=== PATIENT | male | born 1965 | race Caucasian/White ===

== ENCOUNTER 2020-03-01 12:14 | Inpatient (IN) | payer MEDICARE, MEDICAID ==
[2020-03-01] VITALS (13 sets, daily range): BP systolic 96–183; BP diastolic 65–98
[~2020-03-01] VITALS: Ht 162.6 cm; Wt 92.6 kg
[~2020-03-01 12:14] MED LIST: ASPI-1158 PO; CINA90TA PO; FAMO20TA8 PO; FOS1G PO; LEVO500T2 PO; LIP40 PO; METO-385 PO; RENAVITE PO
[2020-03-01] MEDS ORDERED: SODIUM CHLORIDE 0.9% 1,000 ML IV ONE (12:30)
[2020-03-01] MEDS ORDERED: VECURONIUM BROMIDE 10 MG/VIAL IV ONE ×2 (12:46→13:00)
[2020-03-01] MEDS ORDERED: SUCCINYLCHOLINE CHLORIDE 200MG/10ML IV ONE (12:46)
[2020-03-01] MEDS ORDERED: ETOMIDATE 2MG/ML 10ML VIAL IV ONE ×2 (12:46→13:00)
[2020-03-01] MEDS ORDERED: PROPOFOL 10MG/ML 100ML 100 ML IV ONE ×2 (13:00→16:39)
[2020-03-01] MEDS: SODIUM CHLORIDE 0.9% 1,000 ML IV SCH ×2 (13:08→20:55)
[2020-03-01 13:12] LABS: BG BASE EXCESS -1.1 mmol/L (-2.0-2.0); BG CARBOXYHEMOGLOBIN 0.7 % (0.5-1.5); BG DEOXYHEMOGLOBIN 4.6 % (0.0-5.0); BG HCO3 ACT 24.6 mmol/L (22.0-26.0); BG METHEMOGLOBIN 0.3 % (0.0-1.5); BG OXYGEN SATURATION 95.4 % (92.0-98.5); BG OXYHEMOGLOBIN 94.4 % (94.0-97.0); BG PCO2 44.7 mmHg (35.0-45.0); BG PH 7.358 (7.350-7.450); BG PO2 83.8 mmHg (75.0-100.0); BG SAMPLE SITE LEFT BRACHIAL; BG TIDAL VOLUME(mL) 500 mL; BG TOTAL HEMOGLOBIN 15.1 g/dL (12.0-18.0); BG VENT MODE VENT - A/C; BG VENT RATE 18 set
[2020-03-01] MEDS ORDERED: ONDANSETRON HCL 4MG/2ML INJ IV PRN (13:15)
[2020-03-01] MEDS ORDERED: ENOXAPARIN 40MG/0.4ML SYR SUBCUT SCH (13:15)
[2020-03-01] MEDS ORDERED: IPRATROPIUM/ALBUTEROL 0.5-3(2.5)MG/3ML NEB NEB PRN (13:15)
[2020-03-01] MEDS ORDERED: PIPERACILLIN/TAZ 3.375G PREMIX 50 ML IV SCH (13:15)
[2020-03-01] MEDS ORDERED: PIPERACILLIN/TAZ 3.375G PREMIX 50 ML IV ONE (13:30)
[2020-03-01] MEDS ORDERED: FENTANYL CITRATE/PF 500 MCG in SODIUM CHLORIDE 0.9% 40 ML IV PRN ×4 (14:45)
[2020-03-01 15:35] LABS: CHLORIDE 103 mEq/L (98-107)
[2020-03-01 15:38] LABS: D-DIMER 2.09 mg/L FEU (<0.50); HEMATOCRIT. 40.2 % (42.0-52.0); HEMOGLOBIN. 13.5 g/dL (14.0-18.0); INR 1.2; MEAN CORPUSCULAR HEMOGLOBIN 27.8 pg (28.0-32.0); MEAN CORPUSCULAR VOLUME 82.5 fL (80.0-94.0); MEAN PLATELET VOLUME 7.3 fl (7.4-10.4); PLATELET 320 x1000/uL (130-400); PROTHROMBIN TIME 12.8 sec (9.6-11.0); RED BLOOD CELL COUNT 4.87 mill/uL (4.7-6.1); RED CELL DISTRIBUTION WIDTH 14.1 % (11.6-14.6)
[2020-03-01 15:39] LABS: ETHANOL BLOOD < 10 mg/dL
[2020-03-01 15:41] LABS: CLARITY URINE CLEAR (CLEAR); COLOR URINE DARK YELLOW (YELLOW); KETONES URINE TRACE (NEGATIVE); LEUKOCYTE ESTERASE URINE NEGATIVE (NEGATIVE); NITRITE URINE NEGATIVE (NEGATIVE); OCCULT BLOOD URINE 2+ (NEGATIVE); PROTEIN URINE 2+ (NEGATIVE); SPECIFIC GRAVITY URINE 1.025 (1.005-1.030)
[2020-03-01 15:45] LABS: CREATINE KINASE 48 IU/L (39-308)
[2020-03-01 15:49] LABS: CREATINE KINASE MB FRACTION < 1.0 ng/mL (0.5-3.6)
[2020-03-01 15:51] LABS: *AMPHETAMINES SCREEN URINE NEGATIVE (NEGATIVE); *BARBITURATES SCREEN URINE NEGATIVE (NEGATIVE); *BENZODIAZEPINES SCREEN URINE NEGATIVE (NEGATIVE); *COCAINE SCREEN URINE NEGATIVE (NEGATIVE); CANNABINOID URINE SCREEN NEGATIVE (NEGATIVE); METHADONE URINE SCREEN NEGATIVE (NEGATIVE); OPIATES URINE SCREEN NEGATIVE (NEGATIVE); PHENCYCLIDINE URINE SCREEN NEGATIVE (NEGATIVE)
[2020-03-01 16:41] LABS: PLATELET ESTIMATE NORMAL
[2020-03-01] MEDS ORDERED: VANCOMYCIN 1500MG in DEXTROSE 5% WATER 250ML IV SCH (20:00)
[2020-03-01] MEDS: ENOXAPARIN 40MG/0.4ML SYR SUBCUT SCH (20:19)
[2020-03-01] MEDS: HYDROXYCHLOROQUINE SULFATE 200MG TABLET PO SCH (20:21)
[2020-03-01] MEDS: ASCORBIC ACID 500 MG TABLET PO SCH (20:21)
[2020-03-01] MEDS: PROPOFOL 10MG/ML 100ML 100 ML IV PRN (22:01)
[2020-03-01] MEDS: FENTANYL CITRATE/PF 1,000 MCG in SODIUM CHLORIDE 0.9% 80 ML IV PRN (22:09)
[2020-03-01 23:04] LABS: BG BASE EXCESS -0.4 mmol/L (-2.0-2.0); BG CARBOXYHEMOGLOBIN 0.3 % (0.5-1.5); BG DEOXYHEMOGLOBIN 8.2 % (0.0-5.0); BG FRACTION INSPIRED OXYGEN 100; BG HCO3 ACT 23.3 mmol/L (22.0-26.0); BG METHEMOGLOBIN 0.2 % (0.0-1.5); BG OXYGEN SATURATION 91.8 % (92.0-98.5); BG OXYHEMOGLOBIN 91.3 % (94.0-97.0); BG PCO2 35.2 mmHg (35.0-45.0); BG PH 7.438 (7.350-7.450); BG PO2 59.6 mmHg (75.0-100.0); BG SAMPLE SITE RIGHT RADIAL; BG TIDAL VOLUME(mL) 500 mL; BG VENT MODE VENT - A/C; BG VENT RATE 18 set
[2020-03-02] VITALS (80 sets, daily range): BP systolic 83–164; BP diastolic 51–102
[2020-03-02 00:05] LABS: CREATINE KINASE 39 IU/L (39-308); CREATINE KINASE MB FRACTION < 1.0 ng/mL (0.5-3.6)
[2020-03-02] MEDS: PROPOFOL 10MG/ML 100ML 100 ML IV PRN ×3 (02:13→12:52)
[2020-03-02] MEDS: CEFTRIAXONE 1 G PREMIX 50 ML IV SCH ×2 (02:48→23:26)
[2020-03-02 05:28] LABS: BASOPHILS % 0.1 % (0.0-2.0); EOSINOPHILS % 0.4 % (0.0-5.0); HEMATOCRIT. 36.6 % (42.0-52.0); HEMOGLOBIN. 12.2 g/dL (14.0-18.0); LYMPHOCYTES % 8.1 % (20.0-50.0); MEAN CORPUSCULAR HEMOGLOBIN 27.7 pg (28.0-32.0); MEAN CORPUSCULAR VOLUME 83.1 fL (80.0-94.0); MEAN PLATELET VOLUME 7.4 fl (7.4-10.4); MONOCYTES % 9.6 % (2.0-8.0); NEUTROPHILS % 81.8 % (40.0-76.0); PLATELET 277 x1000/uL (130-400); RED BLOOD CELL COUNT 4.41 mill/uL (4.7-6.1); RED CELL DISTRIBUTION WIDTH 14.1 % (11.6-14.6)
[2020-03-02 05:38] LABS: CHLORIDE 107 mEq/L (98-107)
[2020-03-02] MEDS: SODIUM CHLORIDE 0.9% 1,000 ML IV SCH (07:40)
[2020-03-02 08:06] LABS: BG BASE EXCESS -2.2 mmol/L (-2.0-2.0); BG CARBOXYHEMOGLOBIN 0.2 % (0.5-1.5); BG DEOXYHEMOGLOBIN 13.6 % (0.0-5.0); BG FRACTION INSPIRED OXYGEN 100; BG HCO3 ACT 21.8 mmol/L (22.0-26.0); BG METHEMOGLOBIN 0.1 % (0.0-1.5); BG OXYGEN SATURATION 86.4 % (92.0-98.5); BG OXYHEMOGLOBIN 86.1 % (94.0-97.0); BG PCO2 35.2 mmHg (35.0-45.0); BG PO2 50.5 mmHg (75.0-100.0); BG SAMPLE SITE RIGHT RADIAL; BG TIDAL VOLUME(mL) 500 mL; BG TOTAL HEMOGLOBIN 12.6 g/dL (12.0-18.0); BG VENT MODE VENT - A/C; BG VENT RATE 18 set
[2020-03-02] MEDS: ZINC SULFATE 220 MG ( 50 ) CAPSULE PO SCH (08:54)
[2020-03-02] MEDS: HYDROXYCHLOROQUINE SULFATE 200MG TABLET PO SCH ×2 (08:54→16:20)
[2020-03-02] MEDS: ASCORBIC ACID 500 MG TABLET PO SCH ×3 (08:54→21:02)
[2020-03-02] MEDS ORDERED: VANCOMYCIN 1250MG in DEXTROSE 5% WATER 250ML IV SCH (09:00)
[2020-03-02] MEDS ORDERED: SODIUM CHLORIDE 0.9% 1,000 ML IV SCH (10:46)
[2020-03-02] MEDS ORDERED: FUROSEMIDE 40MG TABLET PO NR (11:00)
[2020-03-02] MEDS: ACETAMINOPHEN 650MG/20.3ML UDC GT PRN ×2 (12:38→23:27)
[2020-03-02] MEDS ORDERED: FUROSEMIDE 40MG/4ML VIAL IVP NR (13:00)
[2020-03-02] MEDS ORDERED: ZINC SULFATE 220 MG ( 50 ) CAPSULE PO SCH (13:00)
[2020-03-02] MEDS: FENTANYL CITRATE/PF 1,000 MCG in SODIUM CHLORIDE 0.9% 80 ML IV PRN (14:53)
[2020-03-02] MEDS: PREDNISONE 5MG TABLET GT SCH (16:17)
[2020-03-02] MEDS: THIAMINE HCL 100MG TABLET PO SCH (16:17)
[2020-03-02] MEDS: TACROLIMUS 1MG CAPSULE PO SCH ×2 (16:18→21:03)
[2020-03-02] MEDS: MYCOPHENOLATE SODIUM 180 MG TABLET.DR PO SCH ×2 (16:35→21:03)
[2020-03-02] MEDS: LACTATED RINGERS 1,000 ML IV SCH (18:21)
[2020-03-02] MEDS: MIDAZOLAM HCL 100 MG in DEXT 5% WATER 80 ML IV PRN (19:35)
[2020-03-02] MEDS: ENOXAPARIN 40MG/0.4ML SYR SUBCUT SCH (21:03)
[2020-03-03] VITALS (96 sets, daily range): BP systolic 86–144; BP diastolic 22–95
[2020-03-03] MEDS: ASCORBIC ACID 500 MG TABLET PO SCH ×4 (00:46→19:52)
[2020-03-03 05:35] LABS: HEMATOCRIT. 37.2 % (42.0-52.0); HEMOGLOBIN. 12.2 g/dL (14.0-18.0); MEAN CORPUSCULAR HEMOGLOBIN 27.4 pg (28.0-32.0); MEAN CORPUSCULAR VOLUME 83.5 fL (80.0-94.0); MEAN PLATELET VOLUME 7.6 fl (7.4-10.4); PLATELET 262 x1000/uL (130-400); RED BLOOD CELL COUNT 4.45 mill/uL (4.7-6.1); RED CELL DISTRIBUTION WIDTH 14.3 % (11.6-14.6)
[2020-03-03] MEDS: MIDAZOLAM HCL 100 MG in DEXT 5% WATER 80 ML IV PRN ×3 (05:46→20:33)
[2020-03-03 05:51] LABS: PHOSPHORUS 4.2 mg/dL (2.5-4.9)
[2020-03-03] MEDS: FENTANYL CITRATE/PF 1,000 MCG in SODIUM CHLORIDE 0.9% 80 ML IV PRN ×2 (05:58→19:44)
[2020-03-03 08:19] LABS: BG BASE EXCESS -4.3 mmol/L (-2.0-2.0); BG CARBOXYHEMOGLOBIN 0.1 % (0.5-1.5); BG DEOXYHEMOGLOBIN 19.6 % (0.0-5.0); BG FRACTION INSPIRED OXYGEN 100; BG METHEMOGLOBIN 0.3 % (0.0-1.5); BG OXYGEN SATURATION 80.3 % (92.0-98.5); BG PCO2 39.1 mmHg (35.0-45.0); BG PH 7.347 (7.350-7.450); BG PO2 44.6 mmHg (75.0-100.0); BG SAMPLE SITE RIGHT RADIAL; BG TIDAL VOLUME(mL) 500 mL; BG TOTAL HEMOGLOBIN 12.5 g/dL (12.0-18.0); BG VENT MODE VENT - A/C; BG VENT RATE 18 set
[2020-03-03 09:51] LABS: PLATELET ESTIMATE NORMAL
[2020-03-03] MEDS: MYCOPHENOLATE SODIUM 180 MG TABLET.DR PO SCH ×2 (09:56→20:34)
[2020-03-03] MEDS: THIAMINE HCL 100MG TABLET PO SCH ×2 (09:56→17:40)
[2020-03-03] MEDS: PREDNISONE 5MG TABLET GT SCH ×2 (09:56→17:40)
[2020-03-03] MEDS: HYDROXYCHLOROQUINE SULFATE 200MG TABLET PO SCH ×2 (09:56→17:40)
[2020-03-03] MEDS: TACROLIMUS 1MG CAPSULE PO SCH ×2 (09:56→20:34)
[2020-03-03] MEDS: ZINC SULFATE 220 MG ( 50 ) CAPSULE PO SCH (09:56)
[2020-03-03] MEDS ORDERED: MAGNESIUM 1 G PREMIX 100 ML IV SCH (10:00)
[2020-03-03] MEDS ORDERED: LIDOCAINE HCL 1% 20ML VIAL (Pyxis) INJ ONE (10:47)
[2020-03-03 10:49] LABS: CLARITY URINE TURBID (CLEAR); COLOR URINE DARK YELLOW (YELLOW); KETONES URINE TRACE (NEGATIVE); LEUKOCYTE ESTERASE URINE TRACE (NEGATIVE); NITRITE URINE NEGATIVE (NEGATIVE); OCCULT BLOOD URINE 3+ (NEGATIVE); PROTEIN URINE 2+ (NEGATIVE); SPECIFIC GRAVITY URINE 1.026 (1.005-1.030)
[2020-03-03] MEDS: LACTATED RINGERS 1,000 ML IV SCH (12:09)
[2020-03-03] MEDS: ACETAMINOPHEN 650MG/20.3ML UDC GT PRN ×2 (12:45→17:41)
[2020-03-03 14:44] LABS: BG BASE EXCESS -6.2 mmol/L (-2.0-2.0); BG CARBOXYHEMOGLOBIN 0.3 % (0.5-1.5); BG DEOXYHEMOGLOBIN 25.9 % (0.0-5.0); BG FRACTION INSPIRED OXYGEN 100; BG HCO3 ACT 19.2 mmol/L (22.0-26.0); BG OXYHEMOGLOBIN 73.8 % (94.0-97.0); BG PCO2 37.9 mmHg (35.0-45.0); BG PH 7.323 (7.350-7.450); BG SAMPLE SITE RIGHT RADIAL; BG TIDAL VOLUME(mL) 500 mL; BG TOTAL HEMOGLOBIN 13.4 g/dL (12.0-18.0); BG VENT MODE VENT - A/C; BG VENT RATE 18 set
[2020-03-03] MEDS ORDERED: FUROSEMIDE 40MG/4ML VIAL IVP NR (15:00)
[2020-03-03] MEDS ORDERED: PHENYLEPHRINE 10 MG in DEXT 5% WATER 249 ML IV PRN (15:45)
[2020-03-03] MEDS: NOREPINEPHRINE 4 MG in DEXT 5% WATER 246 ML IV PRN (17:29)
[2020-03-03 20:21] LABS: BG BASE EXCESS -3.5 mmol/L (-2.0-2.0); BG CARBOXYHEMOGLOBIN 0.2 % (0.5-1.5); BG FRACTION INSPIRED OXYGEN 100; BG HCO3 ACT 22.6 mmol/L (22.0-26.0); BG METHEMOGLOBIN 0.2 % (0.0-1.5); BG OXYGEN SATURATION 76.9 % (92.0-98.5); BG OXYHEMOGLOBIN 76.6 % (94.0-97.0); BG PCO2 44.9 mmHg (35.0-45.0); BG PO2 43.6 mmHg (75.0-100.0); BG SAMPLE SITE LEFT RADIAL; BG TIDAL VOLUME(mL) 500 mL; BG TOTAL HEMOGLOBIN 13.1 g/dL (12.0-18.0); BG VENT MODE VENT - A/C; BG VENT RATE 18 set
[2020-03-03] MEDS: ENOXAPARIN 40MG/0.4ML SYR SUBCUT SCH (20:34)
[2020-03-04] VITALS (96 sets, daily range): BP systolic 90–132; BP diastolic 57–81
[2020-03-04] MEDS: ASCORBIC ACID 500 MG TABLET PO SCH ×4 (00:51→19:04)
[2020-03-04] MEDS: CEFTRIAXONE 1,000 MG in DEXTROSE 5% WATER 50 ML IV SCH (00:55)
[2020-03-04] MEDS: ACETAMINOPHEN 650MG/20.3ML UDC GT PRN ×2 (01:03→06:43)
[2020-03-04 05:26] LABS: HEMATOCRIT. 38.8 % (42.0-52.0); HEMOGLOBIN. 12.5 g/dL (14.0-18.0); MEAN CORPUSCULAR HEMOGLOBIN 27.1 pg (28.0-32.0); MEAN CORPUSCULAR VOLUME 83.8 fL (80.0-94.0); MEAN PLATELET VOLUME 7.8 fl (7.4-10.4); PLATELET 269 x1000/uL (130-400); RED BLOOD CELL COUNT 4.63 mill/uL (4.7-6.1); RED CELL DISTRIBUTION WIDTH 14.7 % (11.6-14.6)
[2020-03-04 06:00] LABS: PHOSPHORUS 3.5 mg/dL (2.5-4.9)
[2020-03-04] MEDS: TACROLIMUS 1MG CAPSULE PO SCH (08:35)
[2020-03-04] MEDS: ZINC SULFATE 220 MG ( 50 ) CAPSULE PO SCH (08:35)
[2020-03-04] MEDS: HYDROXYCHLOROQUINE SULFATE 200MG TABLET PO SCH ×2 (08:35→17:18)
[2020-03-04] MEDS: PREDNISONE 5MG TABLET GT SCH ×2 (08:35→17:18)
[2020-03-04] MEDS: THIAMINE HCL 100MG TABLET PO SCH ×2 (08:36→17:18)
[2020-03-04] MEDS: MYCOPHENOLATE SODIUM 180 MG TABLET.DR PO SCH ×2 (08:36→20:06)
[2020-03-04] MEDS: LACTATED RINGERS 1,000 ML IV SCH (08:41)
[2020-03-04] MEDS: FENTANYL CITRATE/PF 1,000 MCG in SODIUM CHLORIDE 0.9% 80 ML IV PRN ×2 (09:03→22:15)
[2020-03-04] MEDS: MIDAZOLAM HCL 100 MG in DEXT 5% WATER 80 ML IV PRN ×2 (09:31→22:14)
[2020-03-04 09:41] LABS: BG BASE EXCESS -3.4 mmol/L (-2.0-2.0); BG CARBOXYHEMOGLOBIN 0.4 % (0.5-1.5); BG DEOXYHEMOGLOBIN 23.1 % (0.0-5.0); BG FRACTION INSPIRED OXYGEN 100; BG HCO3 ACT 23.4 mmol/L (22.0-26.0); BG METHEMOGLOBIN 0.1 % (0.0-1.5); BG OXYGEN SATURATION 76.8 % (92.0-98.5); BG OXYHEMOGLOBIN 76.4 % (94.0-97.0); BG PCO2 48.7 mmHg (35.0-45.0); BG PH 7.299 (7.350-7.450); BG PO2 44.3 mmHg (75.0-100.0); BG SAMPLE SITE RIGHT BRACHIAL; BG TIDAL VOLUME(mL) 500 mL; BG TOTAL HEMOGLOBIN 13.3 g/dL (12.0-18.0); BG VENT MODE VENT - A/C; BG VENT RATE 18 set
[2020-03-04 10:27] LABS: ATYPICAL LYMPHOCYTES 1; PLATELET ESTIMATE NORMAL
[2020-03-04] MEDS ORDERED: TACROLIMUS 1MG CAPSULE PO SCH (13:00)
[2020-03-04] MEDS: PANTOPRAZOLE SODIUM 40 MG/VIAL IV SCH (20:06)
[2020-03-04] MEDS: ENOXAPARIN 40MG/0.4ML SYR SUBCUT SCH (20:07)
[2020-03-04] MEDS: TACROLIMUS 0.5 MG CAPSULE PO SCH (20:07)
[2020-03-05] VITALS (92 sets, daily range): BP systolic 69–129; BP diastolic 27–92
[2020-03-05] MEDS: ACETAMINOPHEN 650MG/20.3ML UDC GT PRN (00:25)
[2020-03-05] MEDS: CEFTRIAXONE 1,000 MG in DEXTROSE 5% WATER 50 ML IV SCH (00:25)
[2020-03-05] MEDS: NOREPINEPHRINE 4 MG in DEXT 5% WATER 246 ML IV PRN ×2 (04:57→12:33)
[2020-03-05 06:28] LABS: CHLORIDE 98 mEq/L (98-107)
[2020-03-05 06:38] LABS: PHOSPHORUS 4.9 mg/dL (2.5-4.9)
[2020-03-05 06:39] LABS: HEMATOCRIT. 38.1 % (42.0-52.0); HEMOGLOBIN. 12.2 g/dL (14.0-18.0); MEAN CORPUSCULAR HEMOGLOBIN 27.2 pg (28.0-32.0); MEAN CORPUSCULAR VOLUME 84.6 fL (80.0-94.0); MEAN PLATELET VOLUME 7.2 fl (7.4-10.4); PLATELET 309 x1000/uL (130-400); RED CELL DISTRIBUTION WIDTH 14.6 % (11.6-14.6)
[2020-03-05] MEDS: MYCOPHENOLATE SODIUM 180 MG TABLET.DR PO SCH ×2 (08:45→21:42)
[2020-03-05] MEDS: PANTOPRAZOLE SODIUM 40 MG/VIAL IV SCH (08:45)
[2020-03-05] MEDS: ZINC SULFATE 220 MG ( 50 ) CAPSULE PO SCH (08:45)
[2020-03-05] MEDS: TACROLIMUS 0.5 MG CAPSULE PO SCH ×2 (08:45→21:42)
[2020-03-05] MEDS: HYDROXYCHLOROQUINE SULFATE 200MG TABLET PO SCH ×2 (08:45→17:21)
[2020-03-05] MEDS: LACTATED RINGERS 1,000 ML IV SCH (08:45)
[2020-03-05] MEDS: PREDNISONE 5MG TABLET GT SCH ×2 (08:45→17:21)
[2020-03-05] MEDS: THIAMINE HCL 100MG TABLET PO SCH ×2 (08:46→17:21)
[2020-03-05] MEDS: ASCORBIC ACID 500 MG TABLET PO SCH ×2 (08:46→21:00)
[2020-03-05 08:50] LABS: BG BASE EXCESS -5.6 mmol/L (-2.0-2.0); BG CARBOXYHEMOGLOBIN 0.4 % (0.5-1.5); BG DEOXYHEMOGLOBIN 19.3 % (0.0-5.0); BG HCO3 ACT 22.5 mmol/L (22.0-26.0); BG METHEMOGLOBIN 0.3 % (0.0-1.5); BG OXYGEN SATURATION 80.6 % (92.0-98.5); BG PCO2 55.2 mmHg (35.0-45.0); BG PH 7.228 (7.350-7.450); BG PO2 47.5 mmHg (75.0-100.0); BG SAMPLE SITE RIGHT RADIAL; BG TIDAL VOLUME(mL) 500 mL; BG TOTAL HEMOGLOBIN 12.7 g/dL (12.0-18.0); BG VENT MODE VENT - A/C; BG VENT RATE 18 set
[2020-03-05 12:22] LABS: PLATELET ESTIMATE NORMAL
[2020-03-05] MEDS ORDERED: FUROSEMIDE 100MG/10ML VIAL IVP NR (14:15)
[2020-03-05] MEDS: FENTANYL CITRATE/PF 1,000 MCG in SODIUM CHLORIDE 0.9% 80 ML IV PRN (15:15)
[2020-03-05] MEDS: MIDAZOLAM HCL 100 MG in DEXT 5% WATER 80 ML IV PRN (15:29)
[2020-03-05] MEDS: ENOXAPARIN 30MG/0.3ML SYR SUBCUT SCH (21:43)
[2020-03-06] VITALS (81 sets, daily range): BP systolic 96–147; BP diastolic 33–90
[2020-03-06] MEDS: CEFTRIAXONE 1,000 MG in DEXTROSE 5% WATER 50 ML IV SCH (03:34)
[2020-03-06] MEDS: LACTATED RINGERS 1,000 ML IV SCH (03:43)
[2020-03-06 06:00] LABS: PHOSPHORUS 4.3 mg/dL (2.5-4.9)
[2020-03-06] MEDS: PANTOPRAZOLE SODIUM 40 MG/VIAL IV SCH (09:02)
[2020-03-06] MEDS: PREDNISONE 5MG TABLET GT SCH ×2 (09:02→17:55)
[2020-03-06] MEDS: ZINC SULFATE 220 MG ( 50 ) CAPSULE PO SCH (09:02)
[2020-03-06] MEDS: TACROLIMUS 0.5 MG CAPSULE PO SCH ×2 (09:03→22:13)
[2020-03-06] MEDS: ASCORBIC ACID 500 MG TABLET PO SCH ×2 (09:03→22:13)
[2020-03-06] MEDS: THIAMINE HCL 100MG TABLET PO SCH ×2 (09:03→17:55)
[2020-03-06] MEDS: HYDROXYCHLOROQUINE SULFATE 200MG TABLET PO SCH (09:07)
[2020-03-06] MEDS ORDERED: FENTANYL CITRATE/PF 50MCG/ML 2ML VIAL IV NR (12:45)
[2020-03-06 14:06] LABS: BG BASE EXCESS -4.9 mmol/L (-2.0-2.0); BG CARBOXYHEMOGLOBIN 0.3 % (0.5-1.5); BG DEOXYHEMOGLOBIN 18.8 % (0.0-5.0); BG FRACTION INSPIRED OXYGEN 100; BG HCO3 ACT 23.2 mmol/L (22.0-26.0); BG METHEMOGLOBIN 0.1 % (0.0-1.5); BG OXYGEN SATURATION 81.1 % (92.0-98.5); BG OXYHEMOGLOBIN 80.8 % (94.0-97.0); BG PCO2 56.3 mmHg (35.0-45.0); BG PH 7.232 (7.350-7.450); BG PO2 47.1 mmHg (75.0-100.0); BG SAMPLE SITE RIGHT RADIAL; BG TIDAL VOLUME(mL) 600 mL; BG TOTAL HEMOGLOBIN 12.8 g/dL (12.0-18.0); BG VENT MODE VENT - A/C; BG VENT RATE 24 set
[2020-03-06] MEDS ORDERED: DIGOXIN 500MCG/2ML AMP IV NR (18:30)
[2020-03-06] MEDS ORDERED: FUROSEMIDE 40MG/4ML VIAL IVP NR (18:45)
[2020-03-06] MEDS: MIDAZOLAM HCL 100 MG in DEXT 5% WATER 80 ML IV PRN (19:47)
[2020-03-06] MEDS: METHYLPREDNISOLONE SOD SUCC 40 MG/ML VIAL IV SCH (19:47)
[2020-03-06] MEDS ORDERED: FENTANYL CITRATE/PF 500 MCG in SODIUM CHLORIDE 0.9% 40 ML IV PRN (20:00)
[2020-03-06] MEDS: DILTIAZEM HCL 125 MG in DEXT 5% WATER 100 ML IV PRN (20:16)
[2020-03-06] MEDS: FENTANYL CITRATE/PF 1,000 MCG in SODIUM CHLORIDE 0.9% 80 ML IV PRN (20:24)
[2020-03-06] MEDS ORDERED: PHENYLEPHRINE 40 MG in DEXT 5% WATER 496 ML IV PRN (21:00)
[2020-03-06] MEDS: MIDODRINE HCL 5MG TABLET PO SCH (22:13)
[2020-03-06] MEDS: ENOXAPARIN 30MG/0.3ML SYR SUBCUT SCH (22:14)
[2020-03-07] VITALS (93 sets, daily range): BP systolic 102–150; BP diastolic 61–95
[2020-03-07] MEDS: CEFTRIAXONE 1,000 MG in DEXTROSE 5% WATER 50 ML IV SCH (00:56)
[2020-03-07 01:32] LABS: BG BASE EXCESS -1.7 mmol/L (-2.0-2.0); BG CARBOXYHEMOGLOBIN 0.3 % (0.5-1.5); BG DEOXYHEMOGLOBIN 20.2 % (0.0-5.0); BG FRACTION INSPIRED OXYGEN 100; BG METHEMOGLOBIN 0.3 % (0.0-1.5); BG OXYGEN SATURATION 79.7 % (92.0-98.5); BG OXYHEMOGLOBIN 79.2 % (94.0-97.0); BG PH 7.236 (7.350-7.450); BG PO2 48.6 mmHg (75.0-100.0); BG SAMPLE SITE RIGHT RADIAL; BG TIDAL VOLUME(mL) 512 mL; BG TOTAL HEMOGLOBIN 12.8 g/dL (12.0-18.0); BG VENT MODE VENT - PCV; BG VENT RATE 24 set
[2020-03-07] MEDS: LACTATED RINGERS 1,000 ML IV SCH (03:58)
[2020-03-07 04:54] LABS: HEMATOCRIT. 36.5 % (42.0-52.0); HEMOGLOBIN. 11.7 g/dL (14.0-18.0); MEAN CORPUSCULAR HEMOGLOBIN 27.4 pg (28.0-32.0); MEAN CORPUSCULAR VOLUME 85.4 fL (80.0-94.0); MEAN PLATELET VOLUME 7.7 fl (7.4-10.4); PLATELET 248 x1000/uL (130-400); RED BLOOD CELL COUNT 4.28 mill/uL (4.7-6.1)
[2020-03-07 05:39] LABS: PHOSPHORUS 3.5 mg/dL (2.5-4.9)
[2020-03-07] MEDS: DILTIAZEM HCL 125 MG in DEXT 5% WATER 100 ML IV PRN ×2 (06:46→20:45)
[2020-03-07 07:46] LABS: BG BASE EXCESS 0.5 mmol/L (-2.0-2.0); BG CARBOXYHEMOGLOBIN 0.4 % (0.5-1.5); BG DEOXYHEMOGLOBIN 20.6 % (0.0-5.0); BG HCO3 ACT 28.1 mmol/L (22.0-26.0); BG OXYGEN SATURATION 79.3 % (92.0-98.5); BG PH 7.296 (7.350-7.450); BG PO2 43.9 mmHg (75.0-100.0); BG SAMPLE SITE RIGHT RADIAL; BG TIDAL VOLUME(mL) 610 mL; BG TOTAL HEMOGLOBIN 12.7 g/dL (12.0-18.0); BG VENT MODE VENT - A/C; BG VENT RATE 24 set
[2020-03-07] MEDS: METHYLPREDNISOLONE SOD SUCC 40 MG/ML VIAL IV SCH ×2 (08:22→16:18)
[2020-03-07] MEDS: PANTOPRAZOLE SODIUM 40 MG/VIAL IV SCH (08:22)
[2020-03-07] MEDS: ASCORBIC ACID 500 MG TABLET PO SCH ×2 (08:22→21:37)
[2020-03-07] MEDS: PREDNISONE 5MG TABLET GT SCH (08:22)
[2020-03-07] MEDS: THIAMINE HCL 100MG TABLET PO SCH ×2 (08:22→16:18)
[2020-03-07] MEDS: ZINC SULFATE 220 MG ( 50 ) CAPSULE PO SCH (08:22)
[2020-03-07] MEDS: TACROLIMUS 0.5 MG CAPSULE PO SCH ×2 (08:23→21:37)
[2020-03-07] MEDS: MIDODRINE HCL 5MG TABLET PO SCH ×3 (08:23→16:19)
[2020-03-07] MEDS: ELECTROLYTE S IV SCH (12:04)
[2020-03-07 13:38] LABS: PLATELET ESTIMATE NORMAL
[2020-03-07] MEDS ORDERED: SODIUM POLYSTYRENE SULFONATE 15 G/60 ML BOT GT NR (15:30)
[2020-03-07] MEDS: ENOXAPARIN 30MG/0.3ML SYR SUBCUT SCH (21:37)
[2020-03-07] MEDS: FENTANYL CITRATE/PF 1,000 MCG in SODIUM CHLORIDE 0.9% 80 ML IV PRN (21:39)
[2020-03-08] VITALS (93 sets, daily range): BP systolic 92–163; BP diastolic 59–94
[2020-03-08] MEDS: MIDAZOLAM HCL 100 MG in DEXT 5% WATER 80 ML IV PRN (01:20)
[2020-03-08 05:16] LABS: HEMATOCRIT. 34.5 % (42.0-52.0); MEAN CORPUSCULAR HEMOGLOBIN 27.1 pg (28.0-32.0); MEAN CORPUSCULAR VOLUME 84.7 fL (80.0-94.0); MEAN PLATELET VOLUME 7.3 fl (7.4-10.4); PLATELET 271 x1000/uL (130-400); RED BLOOD CELL COUNT 4.07 mill/uL (4.7-6.1); RED CELL DISTRIBUTION WIDTH 15.1 % (11.6-14.6)
[2020-03-08 05:26] LABS: CHLORIDE 103 mEq/L (98-107)
[2020-03-08 05:35] LABS: PHOSPHORUS 3.1 mg/dL (2.5-4.9)
[2020-03-08] MEDS: ELECTROLYTE S IV SCH (06:15)
[2020-03-08] MEDS: DILTIAZEM HCL 125 MG in DEXT 5% WATER 100 ML IV PRN ×2 (06:20→14:37)
[2020-03-08] MEDS: METHYLPREDNISOLONE SOD SUCC 40 MG/ML VIAL IV SCH ×2 (08:15→16:43)
[2020-03-08] MEDS: MIDODRINE HCL 5MG TABLET PO SCH ×3 (08:16→16:44)
[2020-03-08] MEDS: THIAMINE HCL 100MG TABLET PO SCH ×2 (08:16→16:43)
[2020-03-08] MEDS: ASCORBIC ACID 500 MG TABLET PO SCH ×2 (08:16→21:16)
[2020-03-08] MEDS: PANTOPRAZOLE SODIUM 40 MG/VIAL IV SCH (08:16)
[2020-03-08] MEDS: TACROLIMUS 0.5 MG CAPSULE PO SCH ×2 (08:16→21:16)
[2020-03-08] MEDS: ZINC SULFATE 220 MG ( 50 ) CAPSULE PO SCH (08:16)
[2020-03-08 12:32] LABS: NUCLEATED RED BLOOD CELLS 1 /100 WBC; PLATELET ESTIMATE NORMAL
[2020-03-08] MEDS: FENTANYL CITRATE/PF 1,000 MCG in SODIUM CHLORIDE 0.9% 80 ML IV PRN (16:36)
[2020-03-08] MEDS ORDERED: SODIUM POLYSTYRENE SULFONATE 15 G/60 ML BOT PR NR (18:00)
[2020-03-08] MEDS: ENOXAPARIN 30MG/0.3ML SYR SUBCUT SCH (21:17)
[2020-03-09] VITALS (91 sets, daily range): BP systolic 102–164; BP diastolic 63–98
[2020-03-09] MEDS: ELECTROLYTE S IV SCH ×2 (02:55→21:55)
[2020-03-09] MEDS: MIDAZOLAM HCL 100 MG in DEXT 5% WATER 80 ML IV PRN (05:39)
[2020-03-09 06:14] LABS: HEMATOCRIT. 34.8 % (42.0-52.0); MEAN CORPUSCULAR HEMOGLOBIN 27.3 pg (28.0-32.0); MEAN CORPUSCULAR VOLUME 86.3 fL (80.0-94.0); MEAN PLATELET VOLUME 7.5 fl (7.4-10.4); PLATELET 327 x1000/uL (130-400); RED BLOOD CELL COUNT 4.04 mill/uL (4.7-6.1); RED CELL DISTRIBUTION WIDTH 14.9 % (11.6-14.6)
[2020-03-09 06:18] LABS: INR 2.2; PROTHROMBIN TIME 23.8 sec (9.6-11.0)
[2020-03-09 08:16] LABS: BG BASE EXCESS 5.2 mmol/L (-2.0-2.0); BG CARBOXYHEMOGLOBIN 0.3 % (0.5-1.5); BG DEOXYHEMOGLOBIN 25.9 % (0.0-5.0); BG METHEMOGLOBIN 0.3 % (0.0-1.5); BG OXYGEN SATURATION 73.9 % (92.0-98.5); BG OXYHEMOGLOBIN 73.5 % (94.0-97.0); BG PH 7.317 (7.350-7.450); BG PIP 30 cmH2O; BG PO2 42.1 mmHg (75.0-100.0); BG SAMPLE SITE RIGHT RADIAL; BG TIDAL VOLUME(mL) 560 mL; BG TOTAL HEMOGLOBIN 11.8 g/dL (12.0-18.0); BG VENT MODE VENT - A/C; BG VENT RATE 24 set
[2020-03-09] MEDS: METHYLPREDNISOLONE SOD SUCC 40 MG/ML VIAL IV SCH ×2 (10:41→17:30)
[2020-03-09] MEDS: ZINC SULFATE 220 MG ( 50 ) CAPSULE PO SCH (10:41)
[2020-03-09] MEDS: PANTOPRAZOLE SODIUM 40 MG/VIAL IV SCH (10:41)
[2020-03-09] MEDS: MIDODRINE HCL 5MG TABLET PO SCH ×3 (10:41→17:31)
[2020-03-09] MEDS: TACROLIMUS 0.5 MG CAPSULE PO SCH ×2 (10:41→21:54)
[2020-03-09] MEDS: ASCORBIC ACID 500 MG TABLET PO SCH ×2 (10:42→21:55)
[2020-03-09] MEDS: THIAMINE HCL 100MG TABLET PO SCH ×2 (10:42→17:31)
[2020-03-09 11:05] LABS: NUCLEATED RED BLOOD CELLS 4 /100 WBC; PLATELET ESTIMATE NORMAL
[2020-03-09] MEDS: DILTIAZEM HCL 125 MG in DEXT 5% WATER 100 ML IV PRN (13:22)
[2020-03-09] MEDS: FENTANYL CITRATE/PF 1,000 MCG in SODIUM CHLORIDE 0.9% 80 ML IV PRN (15:00)
[2020-03-09] MEDS: ENOXAPARIN 30MG/0.3ML SYR SUBCUT SCH (21:55)
[2020-03-10] VITALS (90 sets, daily range): BP systolic 97–155; BP diastolic 63–92
[2020-03-10] MEDS: DILTIAZEM HCL 125 MG in DEXT 5% WATER 100 ML IV PRN ×3 (01:26→19:38)
[2020-03-10 07:31] LABS: CHLORIDE 109 mEq/L (98-107)
[2020-03-10 07:32] LABS: HEMATOCRIT. 33.9 % (42.0-52.0); HEMOGLOBIN. 10.6 g/dL (14.0-18.0); MEAN CORPUSCULAR HEMOGLOBIN 27.4 pg (28.0-32.0); MEAN CORPUSCULAR VOLUME 87.4 fL (80.0-94.0); MEAN PLATELET VOLUME 7.4 fl (7.4-10.4); PLATELET 266 x1000/uL (130-400); RED BLOOD CELL COUNT 3.88 mill/uL (4.7-6.1); RED CELL DISTRIBUTION WIDTH 15.4 % (11.6-14.6)
[2020-03-10] MEDS: ZINC SULFATE 220 MG ( 50 ) CAPSULE PO SCH (08:29)
[2020-03-10] MEDS: PANTOPRAZOLE SODIUM 40 MG/VIAL IV SCH (08:29)
[2020-03-10] MEDS: TACROLIMUS 0.5 MG CAPSULE PO SCH ×2 (08:29→21:29)
[2020-03-10] MEDS: ASCORBIC ACID 500 MG TABLET PO SCH ×2 (08:29→21:29)
[2020-03-10] MEDS: MIDODRINE HCL 5MG TABLET PO SCH ×3 (08:29→16:38)
[2020-03-10] MEDS: THIAMINE HCL 100MG TABLET PO SCH ×2 (08:29→16:37)
[2020-03-10] MEDS: METHYLPREDNISOLONE SOD SUCC 40 MG/ML VIAL IV SCH ×2 (08:32→16:37)
[2020-03-10 10:26] LABS: BG BASE EXCESS 7.4 mmol/L (-2.0-2.0); BG CARBOXYHEMOGLOBIN 0.4 % (0.5-1.5); BG DEOXYHEMOGLOBIN 21.7 % (0.0-5.0); BG HCO3 ACT 35.6 mmol/L (22.0-26.0); BG METHEMOGLOBIN 0.3 % (0.0-1.5); BG OXYGEN SATURATION 78.1 % (92.0-98.5); BG OXYHEMOGLOBIN 77.6 % (94.0-97.0); BG PCO2 70.6 mmHg (35.0-45.0); BG PH 7.321 (7.350-7.450); BG PO2 45.8 mmHg (75.0-100.0); BG SAMPLE SITE RIGHT RADIAL; BG TIDAL VOLUME(mL) 565 mL; BG TOTAL HEMOGLOBIN 11.9 g/dL (12.0-18.0); BG VENT MODE VENT - PCV; BG VENT RATE 24 set
[2020-03-10 11:11] LABS: NUCLEATED RED BLOOD CELLS 5 /100 WBC; PLATELET ESTIMATE NORMAL
[2020-03-10] MEDS: MIDAZOLAM HCL 100 MG in DEXT 5% WATER 80 ML IV PRN (11:13)
[2020-03-10] MEDS: FENTANYL CITRATE/PF 1,000 MCG in SODIUM CHLORIDE 0.9% 80 ML IV PRN (11:18)
[2020-03-10] MEDS: ELECTROLYTE S IV SCH (18:31)
[2020-03-10] MEDS ORDERED: ENOXAPARIN 40MG/0.4ML SYR SUBCUT SCH (21:00)
[2020-03-11] VITALS (88 sets, daily range): BP systolic 111–165; BP diastolic 68–100
[2020-03-11] MEDS: FENTANYL CITRATE/PF 1,000 MCG in SODIUM CHLORIDE 0.9% 80 ML IV PRN ×2 (01:17→13:24)
[2020-03-11] MEDS: MIDAZOLAM HCL 100 MG in DEXT 5% WATER 80 ML IV PRN ×2 (05:47→23:03)
[2020-03-11] MEDS: MIDODRINE HCL 5MG TABLET PO SCH ×3 (09:00→17:00)
[2020-03-11] MEDS: ZINC SULFATE 220 MG ( 50 ) CAPSULE PO SCH (09:04)
[2020-03-11] MEDS: PANTOPRAZOLE SODIUM 40 MG/VIAL IV SCH (09:04)
[2020-03-11] MEDS: METHYLPREDNISOLONE SOD SUCC 40 MG/ML VIAL IV SCH ×2 (09:04→17:04)
[2020-03-11] MEDS: THIAMINE HCL 100MG TABLET PO SCH ×2 (09:04→16:56)
[2020-03-11 10:03] LABS: BG BASE EXCESS 9.7 mmol/L (-2.0-2.0); BG CARBOXYHEMOGLOBIN 0.4 % (0.5-1.5); BG DEOXYHEMOGLOBIN 19.4 % (0.0-5.0); BG FRACTION INSPIRED OXYGEN 100; BG HCO3 ACT 37.8 mmol/L (22.0-26.0); BG METHEMOGLOBIN 0.3 % (0.0-1.5); BG OXYGEN SATURATION 80.5 % (92.0-98.5); BG OXYHEMOGLOBIN 79.9 % (94.0-97.0); BG PH 7.344 (7.350-7.450); BG PIP 28 cmH2O; BG PO2 46.2 mmHg (75.0-100.0); BG SAMPLE SITE RIGHT RADIAL; BG TOTAL HEMOGLOBIN 11.6 g/dL (12.0-18.0); BG VENT MODE VENT - PCV; BG VENT RATE 24 set
[2020-03-11] MEDS ORDERED: HEPARIN 25,000 UNITS PREMIX 500 ML IV PRN ×2 (11:00→13:15)
[2020-03-11] MEDS: TACROLIMUS 0.5 MG CAPSULE PO SCH ×2 (11:57→22:41)
[2020-03-11] MEDS: ASCORBIC ACID 500 MG TABLET PO SCH ×2 (11:59→22:42)
[2020-03-11 12:11] LABS: HEMATOCRIT 34.8 % (42.0-52.0); HEMOGLOBIN 10.6 g/dL (14.0-18.0); MEAN CORPUSCULAR HEMOGLOBIN 27.5 pg (28.0-32.0); MEAN CORPUSCULAR VOLUME 89.7 fL (80.0-94.0); PLATELET 271 x1000/uL (130-400); RED BLOOD CELL COUNT 3.88 mill/uL (4.7-6.1); RED CELL DISTRIBUTION WIDTH 16.1 % (11.6-14.6)
[2020-03-11 12:15] LABS: INR 2.3; PARTIAL THROMBOPLASTIN TIME 34.5 sec (23.4-31.0); PROTHROMBIN TIME 24.6 sec (9.6-11.0)
[2020-03-11] MEDS ORDERED: HEPARIN BOLUS PRN aPTT <36 IV ×2 (13:45→13:57)
[2020-03-11] MEDS ORDERED: HEPARIN 80 UNITS/KG BOLUS IV NR ×2 (13:45→13:57)
[2020-03-11] MEDS ORDERED: HEPARIN BOLUS PRN aPTT 37-44 IV ×2 (13:45→13:57)
[2020-03-11 14:26] LABS: CLARITY URINE CLEAR (CLEAR); COLOR URINE YELLOW (YELLOW); KETONES URINE NEGATIVE (NEGATIVE); LEUKOCYTE ESTERASE URINE TRACE (NEGATIVE); NITRITE URINE NEGATIVE (NEGATIVE); OCCULT BLOOD URINE 3+ (NEGATIVE); PH URINE 5.5 (4.5-8.0); PROTEIN URINE 1+ (NEGATIVE); SPECIFIC GRAVITY URINE 1.021 (1.005-1.030)
[2020-03-11] MEDS: ELECTROLYTE S IV SCH (15:07)
[2020-03-11] MEDS: HEPARIN 25,000 UNITS PREMIX 500 ML IV PRN (15:37)
[2020-03-11 16:53] LABS: CHLORIDE 114 mEq/L (98-107)
[2020-03-11] MEDS: DILTIAZEM HCL 125 MG in DEXT 5% WATER 100 ML IV PRN (23:37)
[2020-03-12] VITALS (96 sets, daily range): BP systolic 104–181; BP diastolic 60–132
[2020-03-12] MEDS: FENTANYL CITRATE/PF 500 MCG in SODIUM CHLORIDE 0.9% 40 ML IV PRN ×2 (01:24→08:34)
[2020-03-12 06:38] LABS: HEMOGLOBIN. 11.4 g/dL (14.0-18.0); MEAN CORPUSCULAR HEMOGLOBIN 27.3 pg (28.0-32.0); MEAN CORPUSCULAR VOLUME 88.7 fL (80.0-94.0); MEAN PLATELET VOLUME 8.3 fl (7.4-10.4); PLATELET 326 x1000/uL (130-400); RED BLOOD CELL COUNT 4.17 mill/uL (4.7-6.1)
[2020-03-12 06:39] LABS: CHLORIDE 114 mEq/L (98-107)
[2020-03-12 06:47] LABS: PHOSPHORUS 2.7 mg/dL (2.5-4.9)
[2020-03-12 07:21] LABS: INR 2.4; PARTIAL THROMBOPLASTIN TIME 58.5 sec (23.4-31.0); PROTHROMBIN TIME 25.6 sec (9.6-11.0)
[2020-03-12 07:55] LABS: BG BASE EXCESS 9.6 mmol/L (-2.0-2.0); BG CARBOXYHEMOGLOBIN 0.3 % (0.5-1.5); BG DEOXYHEMOGLOBIN 13.7 % (0.0-5.0); BG HCO3 ACT 37.6 mmol/L (22.0-26.0); BG METHEMOGLOBIN 0.3 % (0.0-1.5); BG OXYGEN SATURATION 86.2 % (92.0-98.5); BG OXYHEMOGLOBIN 85.7 % (94.0-97.0); BG PCO2 71.2 mmHg (35.0-45.0); BG PH 7.341 (7.350-7.450); BG PO2 56.4 mmHg (75.0-100.0); BG SAMPLE SITE RIGHT RADIAL; BG TIDAL VOLUME(mL) 600 mL; BG TOTAL HEMOGLOBIN 11.2 g/dL (12.0-18.0); BG VENT MODE VENT - A/C; BG VENT RATE 24 set
[2020-03-12] MEDS: THIAMINE HCL 100MG TABLET PO SCH ×2 (09:04→16:55)
[2020-03-12] MEDS: ASCORBIC ACID 500 MG TABLET PO SCH ×2 (09:04→20:59)
[2020-03-12] MEDS: DEXTROSE 5% WATER 1,000 ML IV SCH ×2 (09:05→13:20)
[2020-03-12] MEDS: METHYLPREDNISOLONE SOD SUCC 40 MG/ML VIAL IV SCH ×2 (09:05→16:54)
[2020-03-12] MEDS: ZINC SULFATE 220 MG ( 50 ) CAPSULE PO SCH (09:05)
[2020-03-12] MEDS: TACROLIMUS 0.5 MG CAPSULE PO SCH ×2 (09:05→20:59)
[2020-03-12] MEDS: ELECTROLYTE S IV SCH (09:06)
[2020-03-12] MEDS: MIDODRINE HCL 5MG TABLET PO SCH ×3 (09:12→16:55)
[2020-03-12 09:18] LABS: NUCLEATED RED BLOOD CELLS 1 /100 WBC; PLATELET ESTIMATE NORMAL
[2020-03-12] MEDS: HEPARIN 25,000 UNITS PREMIX 500 ML IV PRN (11:54)
[2020-03-12] MEDS ORDERED: LIDOCAINE HCL 1% 20ML VIAL (Pyxis) INJ ONE ×2 (13:28→14:00)
[2020-03-12] MEDS ORDERED: SODIUM BICARBONATE 4% (2.4MEQ) 5ML VIAL IV ONE (14:00)
[2020-03-12] MEDS: FENTANYL CITRATE/PF 1,000 MCG in SODIUM CHLORIDE 0.9% 80 ML IV PRN ×2 (14:47→23:47)
[2020-03-12] MEDS: MIDAZOLAM HCL 100 MG in DEXT 5% WATER 80 ML IV PRN (16:58)
[2020-03-12 17:45] LABS: CHLORIDE 114 mEq/L (98-107)
[2020-03-12] MEDS ORDERED: HYDRALAZINE 20MG/ML VIAL IV PRN (19:00)
[2020-03-12] MEDS ORDERED: HEPARIN 100 UNITS/1 ML VIAL IVF PRN ×2 (20:00→20:15)
[2020-03-12] MEDS: DOXYCYCLINE 100 MG in DEXT 5% WATER 100 ML IV SCH (23:24)
[2020-03-12] MEDS: CEFEPIME 2,000 MG in DEXT 5% WATER 100 ML IV SCH (23:24)
[2020-03-13] VITALS (92 sets, daily range): BP systolic 84–180; BP diastolic 57–109
[2020-03-13 06:24] LABS: HEMATOCRIT. 33.5 % (42.0-52.0); HEMOGLOBIN. 10.1 g/dL (14.0-18.0); MEAN CORPUSCULAR HEMOGLOBIN 27.2 pg (28.0-32.0); MEAN PLATELET VOLUME 8.2 fl (7.4-10.4); PLATELET 291 x1000/uL (130-400); RED BLOOD CELL COUNT 3.72 mill/uL (4.7-6.1); RED CELL DISTRIBUTION WIDTH 16.1 % (11.6-14.6)
[2020-03-13 06:27] LABS: CHLORIDE 110 mEq/L (98-107)
[2020-03-13 06:36] LABS: PHOSPHORUS 3.5 mg/dL (2.5-4.9)
[2020-03-13] MEDS: MIDAZOLAM HCL 100 MG in DEXT 5% WATER 80 ML IV PRN ×2 (07:31→17:05)
[2020-03-13] MEDS: ELECTROLYTE S IV SCH ×3 (07:32→23:26)
[2020-03-13 07:54] LABS: NUCLEATED RED BLOOD CELLS 1 /100 WBC; PLATELET ESTIMATE NORMAL
[2020-03-13] MEDS: FENTANYL CITRATE/PF 1,000 MCG in SODIUM CHLORIDE 0.9% 80 ML IV PRN ×2 (09:19→19:59)
[2020-03-13] MEDS: CEFEPIME 2,000 MG in DEXT 5% WATER 100 ML IV SCH ×2 (09:20→20:22)
[2020-03-13] MEDS: DEXTROSE 5% WATER 1,000 ML IV SCH ×3 (09:20→12:29)
[2020-03-13] MEDS: TACROLIMUS 0.5 MG CAPSULE PO SCH ×2 (09:21→20:21)
[2020-03-13] MEDS: THIAMINE HCL 100MG TABLET PO SCH ×2 (09:21→16:53)
[2020-03-13] MEDS: ASCORBIC ACID 500 MG TABLET PO SCH ×2 (09:21→20:22)
[2020-03-13] MEDS: ZINC SULFATE 220 MG ( 50 ) CAPSULE PO SCH (09:21)
[2020-03-13] MEDS: MIDODRINE HCL 5MG TABLET PO SCH ×3 (09:21→16:53)
[2020-03-13] MEDS: METHYLPREDNISOLONE SOD SUCC 40 MG/ML VIAL IV SCH ×2 (09:21→16:54)
[2020-03-13] MEDS: DOXYCYCLINE 100 MG in DEXT 5% WATER 100 ML IV SCH ×2 (09:21→20:22)
[2020-03-13 12:47] LABS: BG CARBOXYHEMOGLOBIN 0.2 % (0.5-1.5); BG DEOXYHEMOGLOBIN 6.4 % (0.0-5.0); BG FRACTION INSPIRED OXYGEN 100; BG METHEMOGLOBIN 0.3 % (0.0-1.5); BG OXYGEN SATURATION 93.6 % (92.0-98.5); BG OXYHEMOGLOBIN 93.1 % (94.0-97.0); BG PCO2 62.8 mmHg (35.0-45.0); BG PH 7.364 (7.350-7.450); BG PO2 73.2 mmHg (75.0-100.0); BG SAMPLE SITE RIGHT RADIAL; BG TOTAL HEMOGLOBIN 10.8 g/dL (12.0-18.0); BG VENT MODE VENT - PCV; BG VENT RATE 24 set
[2020-03-13 16:40] LABS: CHLORIDE 106 mEq/L (98-107)
[2020-03-13] MEDS: HEPARIN 25,000 UNITS PREMIX 500 ML IV PRN (17:40)
[2020-03-14] VITALS (93 sets, daily range): BP systolic 105–173; BP diastolic 62–99
[2020-03-14] MEDS: MIDAZOLAM HCL 100 MG in DEXT 5% WATER 80 ML IV PRN ×2 (03:23→12:52)
[2020-03-14] MEDS: METOCLOPRAMIDE HCL 10MG/2ML VIAL IV SCH ×3 (06:03→21:21)
[2020-03-14 06:15] LABS: HEMATOCRIT. 31.4 % (42.0-52.0); HEMOGLOBIN. 9.7 g/dL (14.0-18.0); MEAN CORPUSCULAR HEMOGLOBIN 27.2 pg (28.0-32.0); MEAN CORPUSCULAR VOLUME 87.9 fL (80.0-94.0); MEAN PLATELET VOLUME 9.2 fl (7.4-10.4); PLATELET 259 x1000/uL (130-400); RED BLOOD CELL COUNT 3.57 mill/uL (4.7-6.1); RED CELL DISTRIBUTION WIDTH 15.9 % (11.6-14.6)
[2020-03-14 06:48] LABS: CHLORIDE 104 mEq/L (98-107)
[2020-03-14 06:53] LABS: PHOSPHORUS 2.5 mg/dL (2.5-4.9)
[2020-03-14] MEDS: ELECTROLYTE S IV SCH ×2 (07:00→15:50)
[2020-03-14] MEDS: FENTANYL CITRATE/PF 1,000 MCG in SODIUM CHLORIDE 0.9% 80 ML IV PRN ×2 (07:02→17:20)
[2020-03-14 07:32] LABS: NUCLEATED RED BLOOD CELLS 4 /100 WBC; PLATELET ESTIMATE NORMAL
[2020-03-14] MEDS: CEFEPIME 2,000 MG in DEXT 5% WATER 100 ML IV SCH ×2 (08:41→20:30)
[2020-03-14] MEDS: DOXYCYCLINE 100 MG in DEXT 5% WATER 100 ML IV SCH (08:54)
[2020-03-14] MEDS: ZINC SULFATE 220 MG ( 50 ) CAPSULE PO SCH (08:54)
[2020-03-14] MEDS: ASCORBIC ACID 500 MG TABLET PO SCH ×2 (08:54→20:29)
[2020-03-14] MEDS: THIAMINE HCL 100MG TABLET PO SCH ×2 (08:55→16:58)
[2020-03-14] MEDS: METHYLPREDNISOLONE SOD SUCC 40 MG/ML VIAL IV SCH (08:55)
[2020-03-14] MEDS: MIDODRINE HCL 5MG TABLET PO SCH ×3 (08:55→16:59)
[2020-03-14] MEDS: TACROLIMUS 0.5 MG CAPSULE PO SCH ×2 (11:14→20:29)
[2020-03-14 15:08] LABS: BG BASE EXCESS 7.8 mmol/L (-2.0-2.0); BG CARBOXYHEMOGLOBIN 0.8 % (0.5-1.5); BG DEOXYHEMOGLOBIN 13.9 % (0.0-5.0); BG FRACTION INSPIRED OXYGEN 100; BG HCO3 ACT 34.5 mmol/L (22.0-26.0); BG METHEMOGLOBIN 0.2 % (0.0-1.5); BG OXYHEMOGLOBIN 85.1 % (94.0-97.0); BG PCO2 60.5 mmHg (35.0-45.0); BG PH 7.374 (7.350-7.450); BG PO2 53.7 mmHg (75.0-100.0); BG SAMPLE SITE RIGHT RADIAL; BG TOTAL HEMOGLOBIN 10.4 g/dL (12.0-18.0); BG VENT MODE VENT - PCV; BG VENT RATE 24 set
[2020-03-14] MEDS: HEPARIN 25,000 UNITS PREMIX 500 ML IV PRN (18:19)
[2020-03-14] MEDS: PANTOPRAZOLE SODIUM 40 MG/VIAL IV SCH (20:29)
[2020-03-14] MEDS: DOXYCYCLINE HYCLATE 100MG CAPSULE PO SCH (20:30)
[2020-03-15] VITALS (66 sets, daily range): BP systolic 81–172; BP diastolic 49–96
[2020-03-15] MEDS: ELECTROLYTE S IV SCH ×3 (00:16→16:24)
[2020-03-15] MEDS: MIDAZOLAM HCL 100 MG in DEXT 5% WATER 80 ML IV PRN ×3 (00:17→19:52)
[2020-03-15] MEDS: FENTANYL CITRATE/PF 1,000 MCG in SODIUM CHLORIDE 0.9% 80 ML IV PRN ×3 (03:41→19:30)
[2020-03-15] MEDS: METOCLOPRAMIDE HCL 10MG/2ML VIAL IV SCH ×3 (05:45→21:02)
[2020-03-15 05:50] LABS: CHLORIDE 104 mEq/L (98-107)
[2020-03-15 05:53] LABS: HEMATOCRIT. 32.7 % (42.0-52.0); HEMOGLOBIN. 10.1 g/dL (14.0-18.0); MEAN CORPUSCULAR HEMOGLOBIN 27.2 pg (28.0-32.0); MEAN CORPUSCULAR VOLUME 87.8 fL (80.0-94.0); MEAN PLATELET VOLUME 8.7 fl (7.4-10.4); PLATELET 299 x1000/uL (130-400); RED BLOOD CELL COUNT 3.72 mill/uL (4.7-6.1); RED CELL DISTRIBUTION WIDTH 15.7 % (11.6-14.6)
[2020-03-15 05:56] LABS: PHOSPHORUS 2.4 mg/dL (2.5-4.9)
[2020-03-15] MEDS: TACROLIMUS 0.5 MG CAPSULE PO SCH ×2 (08:42→20:32)
[2020-03-15] MEDS: CEFEPIME 2,000 MG in DEXT 5% WATER 100 ML IV SCH ×2 (08:42→20:32)
[2020-03-15] MEDS: PANTOPRAZOLE SODIUM 40 MG/VIAL IV SCH (08:42)
[2020-03-15] MEDS: MIDODRINE HCL 5MG TABLET PO SCH ×3 (08:43→16:24)
[2020-03-15] MEDS: THIAMINE HCL 100MG TABLET PO SCH ×2 (08:43→16:24)
[2020-03-15] MEDS: DOXYCYCLINE HYCLATE 100MG CAPSULE PO SCH ×2 (08:43→20:32)
[2020-03-15 09:21] LABS: NUCLEATED RED BLOOD CELLS 1 /100 WBC; PLATELET ESTIMATE NORMAL
[2020-03-15] MEDS: ASCORBIC ACID 500 MG TABLET PO SCH ×2 (09:59→20:32)
[2020-03-15] MEDS: ZINC SULFATE 220 MG ( 50 ) CAPSULE PO SCH (09:59)
[2020-03-15] MEDS: METHYLPREDNISOLONE SOD SUCC 40 MG/ML VIAL IV SCH (10:00)
[2020-03-15 10:54] LABS: BG BASE EXCESS 9.6 mmol/L (-2.0-2.0); BG CARBOXYHEMOGLOBIN 1.6 % (0.5-1.5); BG DEOXYHEMOGLOBIN 13.4 % (0.0-5.0); BG FRACTION INSPIRED OXYGEN 100; BG HCO3 ACT 36.9 mmol/L (22.0-26.0); BG OXYGEN SATURATION 86.4 % (92.0-98.5); BG PCO2 66.2 mmHg (35.0-45.0); BG PH 7.364 (7.350-7.450); BG PO2 54.7 mmHg (75.0-100.0); BG SAMPLE SITE RIGHT RADIAL; BG TOTAL HEMOGLOBIN 10.4 g/dL (12.0-18.0); BG VENT MODE VENT - PCV; BG VENT RATE 24 set
[2020-03-15] MEDS: HEPARIN 25,000 UNITS PREMIX 500 ML IV PRN (21:00)
[2020-03-16] VITALS (84 sets, daily range): BP systolic 83–149; BP diastolic 51–79
[2020-03-16] MEDS: ELECTROLYTE S IV SCH ×3 (00:50→18:05)
[2020-03-16] MEDS: FENTANYL CITRATE/PF 1,000 MCG in SODIUM CHLORIDE 0.9% 80 ML IV PRN ×3 (02:48→19:00)
[2020-03-16] MEDS: METOCLOPRAMIDE HCL 10MG/2ML VIAL IV SCH ×3 (05:07→21:07)
[2020-03-16] MEDS: MIDAZOLAM HCL 100 MG in DEXT 5% WATER 80 ML IV PRN ×2 (05:48→19:01)
[2020-03-16 06:44] LABS: CHLORIDE 104 mEq/L (98-107)
[2020-03-16 07:03] LABS: HEMATOCRIT. 28.1 % (42.0-52.0); HEMOGLOBIN. 8.6 g/dL (14.0-18.0); MEAN CORPUSCULAR VOLUME 87.8 fL (80.0-94.0); MEAN PLATELET VOLUME 8.2 fl (7.4-10.4); PLATELET 296 x1000/uL (130-400); RED CELL DISTRIBUTION WIDTH 16.2 % (11.6-14.6)
[2020-03-16 07:20] LABS: VITAMIN B12 SERUM 1342 pg/mL (211-911)
[2020-03-16 08:27] LABS: BG BASE EXCESS 5.9 mmol/L (-2.0-2.0); BG CARBOXYHEMOGLOBIN 1.6 % (0.5-1.5); BG DEOXYHEMOGLOBIN 34.9 % (0.0-5.0); BG FRACTION INSPIRED OXYGEN 100; BG HCO3 ACT 32.7 mmol/L (22.0-26.0); BG METHEMOGLOBIN 0.3 % (0.0-1.5); BG OXYGEN SATURATION 64.4 % (92.0-98.5); BG OXYHEMOGLOBIN 63.2 % (94.0-97.0); BG PCO2 61.1 mmHg (35.0-45.0); BG PH 7.347 (7.350-7.450); BG PO2 36.3 mmHg (75.0-100.0); BG SAMPLE SITE RIGHT RADIAL; BG TOTAL HEMOGLOBIN 9.7 g/dL (12.0-18.0); BG VENT MODE VENT - PCV; BG VENT RATE 24 set
[2020-03-16] MEDS: CEFEPIME 2,000 MG in DEXT 5% WATER 100 ML IV SCH ×2 (08:51→21:08)
[2020-03-16] MEDS: PANTOPRAZOLE SODIUM 40 MG/VIAL IV SCH (08:51)
[2020-03-16] MEDS: METHYLPREDNISOLONE SOD SUCC 40 MG/ML VIAL IV SCH (08:52)
[2020-03-16] MEDS: THIAMINE HCL 100MG TABLET PO SCH ×2 (08:52→17:00)
[2020-03-16] MEDS: MIDODRINE HCL 5MG TABLET PO SCH ×3 (08:52→17:00)
[2020-03-16] MEDS: ASCORBIC ACID 500 MG TABLET PO SCH ×2 (08:52→21:07)
[2020-03-16] MEDS: ZINC SULFATE 220 MG ( 50 ) CAPSULE PO SCH (08:52)
[2020-03-16] MEDS: TACROLIMUS 0.5 MG CAPSULE PO SCH ×2 (08:53→21:07)
[2020-03-16] MEDS: DOXYCYCLINE HYCLATE 100MG CAPSULE PO SCH ×2 (08:53→21:07)
[2020-03-16 09:46] LABS: PLATELET ESTIMATE NORMAL
[2020-03-16] MEDS: SODIUM POLYSTYRENE SULFONATE 15 G/60 ML BOT GT SCH ×2 (11:00→21:07)
[2020-03-16 15:25] LABS: BG CARBOXYHEMOGLOBIN 2.1 % (0.5-1.5); BG DEOXYHEMOGLOBIN 26.5 % (0.0-5.0); BG FRACTION INSPIRED OXYGEN 100; BG HCO3 ACT 33.8 mmol/L (22.0-26.0); BG METHEMOGLOBIN 0.1 % (0.0-1.5); BG OXYGEN SATURATION 72.9 % (92.0-98.5); BG OXYHEMOGLOBIN 71.3 % (94.0-97.0); BG PCO2 62.9 mmHg (35.0-45.0); BG PH 7.348 (7.350-7.450); BG PO2 41.2 mmHg (75.0-100.0); BG SAMPLE SITE RIGHT RADIAL; BG TOTAL HEMOGLOBIN 8.4 g/dL (12.0-18.0); BG VENT MODE VENT - PCV; BG VENT RATE 22 set
[2020-03-16 20:35] LABS: HEMATOCRIT 26.9 % (42.0-52.0); HEMOGLOBIN 8.2 g/dL (14.0-18.0); MEAN CORPUSCULAR HEMOGLOBIN 26.8 pg (28.0-32.0); MEAN CORPUSCULAR VOLUME 87.7 fL (80.0-94.0); PLATELET 277 x1000/uL (130-400); RED BLOOD CELL COUNT 3.06 mill/uL (4.7-6.1); RED CELL DISTRIBUTION WIDTH 16.1 % (11.6-14.6)
[2020-03-16] MEDS ORDERED: PHENYLEPHRINE 80 MG in DEXT 5% WATER 492 ML IV PRN (21:45)
[2020-03-17] VITALS (102 sets, daily range): BP systolic 77–121; BP diastolic 45–72
[2020-03-17] MEDS: FENTANYL CITRATE/PF 1,000 MCG in SODIUM CHLORIDE 0.9% 80 ML IV PRN ×3 (00:25→15:58)
[2020-03-17 00:38] LABS: HEMATOCRIT 24.9 % (42.0-52.0); HEMOGLOBIN 7.5 g/dL (14.0-18.0); MEAN CORPUSCULAR HEMOGLOBIN 26.7 pg (28.0-32.0); MEAN CORPUSCULAR VOLUME 88.5 fL (80.0-94.0); PLATELET 256 x1000/uL (130-400); RED BLOOD CELL COUNT 2.82 mill/uL (4.7-6.1); RED CELL DISTRIBUTION WIDTH 16.3 % (11.6-14.6)
[2020-03-17] MEDS: ELECTROLYTE S IV SCH ×3 (02:07→18:20)
[2020-03-17] MEDS: MIDAZOLAM HCL 100 MG in DEXT 5% WATER 80 ML IV PRN ×2 (04:03→16:00)
[2020-03-17] MEDS: METOCLOPRAMIDE HCL 10MG/2ML VIAL IV SCH ×3 (05:10→21:02)
[2020-03-17 06:55] LABS: HEMATOCRIT. 28.8 % (42.0-52.0); HEMOGLOBIN. 8.8 g/dL (14.0-18.0); MEAN CORPUSCULAR HEMOGLOBIN 27.3 pg (28.0-32.0); MEAN CORPUSCULAR VOLUME 89.1 fL (80.0-94.0); MEAN PLATELET VOLUME 8.5 fl (7.4-10.4); PLATELET 293 x1000/uL (130-400); RED BLOOD CELL COUNT 3.24 mill/uL (4.7-6.1); RED CELL DISTRIBUTION WIDTH 16.4 % (11.6-14.6)
[2020-03-17 06:59] LABS: CHLORIDE 105 mEq/L (98-107)
[2020-03-17 07:05] LABS: PHOSPHORUS 2.6 mg/dL (2.5-4.9)
[2020-03-17] MEDS ORDERED: PHENYLEPHRINE 80 MG in DEXT 5% WATER 492 ML IV PRN (09:00)
[2020-03-17] MEDS: CEFEPIME 2,000 MG in DEXT 5% WATER 100 ML IV SCH (09:25)
[2020-03-17] MEDS: ZINC SULFATE 220 MG ( 50 ) CAPSULE PO SCH (09:25)
[2020-03-17] MEDS: PANTOPRAZOLE SODIUM 40 MG/VIAL IV SCH (09:25)
[2020-03-17] MEDS: METHYLPREDNISOLONE SOD SUCC 40 MG/ML VIAL IV SCH (09:25)
[2020-03-17] MEDS: THIAMINE HCL 100MG TABLET PO SCH ×2 (09:27→17:14)
[2020-03-17] MEDS: MIDODRINE HCL 5MG TABLET PO SCH ×3 (09:27→17:14)
[2020-03-17] MEDS: ASCORBIC ACID 500 MG TABLET PO SCH ×2 (09:27→21:02)
[2020-03-17] MEDS: DOXYCYCLINE HYCLATE 100MG CAPSULE PO SCH ×2 (09:27→21:02)
[2020-03-17] MEDS: TACROLIMUS 0.5 MG CAPSULE PO SCH ×2 (09:29→21:02)
[2020-03-17 11:19] LABS: BG BASE EXCESS 3.4 mmol/L (-2.0-2.0); BG CARBOXYHEMOGLOBIN 3.1 % (0.5-1.5); BG DEOXYHEMOGLOBIN 52.8 % (0.0-5.0); BG FRACTION INSPIRED OXYGEN 100; BG HCO3 ACT 31.9 mmol/L (22.0-26.0); BG METHEMOGLOBIN 0.3 % (0.0-1.5); BG OXYGEN SATURATION 45.3 % (92.0-98.5); BG OXYHEMOGLOBIN 43.8 % (94.0-97.0); BG PCO2 73.5 mmHg (35.0-45.0); BG PH 7.256 (7.350-7.450); BG PO2 < 30.3 mmHg (75.0-100.0); BG SAMPLE SITE RIGHT RADIAL; BG TOTAL HEMOGLOBIN 9.9 g/dL (12.0-18.0); BG VENT MODE VENT - PCV; BG VENT RATE 24 set
[2020-03-17 12:12] LABS: NUCLEATED RED BLOOD CELLS 2 /100 WBC; PLATELET ESTIMATE NORMAL
[2020-03-17 14:04] LABS: HEMATOCRIT 29.8 % (42.0-52.0); HEMOGLOBIN 9.1 g/dL (14.0-18.0); MEAN CORPUSCULAR HEMOGLOBIN 27.7 pg (28.0-32.0); MEAN CORPUSCULAR VOLUME 90.6 fL (80.0-94.0); PLATELET 366 x1000/uL (130-400); RED BLOOD CELL COUNT 3.29 mill/uL (4.7-6.1)
[2020-03-17] MEDS ORDERED: FENTANYL CITRATE/PF 1,000 MCG in SODIUM CHLORIDE 0.9% 80 ML IV PRN (15:00)
[2020-03-17] MEDS: NOREPINEPHRINE 4 MG in DEXT 5% WATER 246 ML IV PRN (17:12)
[2020-03-17 18:28] LABS: PROTHROMBIN TIME 74.2 sec (9.6-11.0)
[2020-03-17 18:31] LABS: INR 7.2
[2020-03-17] MEDS ORDERED: PHYTONADIONE 10MG/ML AMP SUBCUT NR (20:30)
[2020-03-17 23:10] LABS: HEMATOCRIT 27.7 % (42.0-52.0); MEAN CORPUSCULAR HEMOGLOBIN 27.5 pg (28.0-32.0); MEAN CORPUSCULAR VOLUME 94.8 fL (80.0-94.0); PLATELET 321 x1000/uL (130-400); RED BLOOD CELL COUNT 2.93 mill/uL (4.7-6.1); RED CELL DISTRIBUTION WIDTH 17.4 % (11.6-14.6)
[2020-03-18] VITALS (20 sets, daily range): BP systolic 76–115; BP diastolic 15–65
[2020-03-18] MEDS: NOREPINEPHRINE 4 MG in DEXT 5% WATER 246 ML IV PRN ×2 (01:24→03:42)
[2020-03-18] MEDS: ELECTROLYTE S IV SCH (02:30)
[2020-03-18] MEDS ORDERED: NOREPINEPHRINE 16 MG in DEXT 5% WATER 234 ML IV PRN (04:30)
[2020-03-18 04:32] LABS: HEMATOCRIT. 29.7 % (42.0-52.0); HEMOGLOBIN. 8.1 g/dL (14.0-18.0); MEAN CORPUSCULAR HEMOGLOBIN 27.8 pg (28.0-32.0); MEAN CORPUSCULAR VOLUME 101.3 fL (80.0-94.0); MEAN PLATELET VOLUME 9.2 fl (7.4-10.4); PLATELET 299 x1000/uL (130-400); RED BLOOD CELL COUNT 2.93 mill/uL (4.7-6.1)
[2020-03-18 04:35] LABS: CHLORIDE 98 mEq/L (98-107)
[2020-03-18 05:35] LABS: PHOSPHORUS 8.7 mg/dL (2.5-4.9)
[2020-03-18 09:11] LABS: PLATELET ESTIMATE NORMAL
== END 2020-03-18 05:31 | disposition expired | DRG 870 ==
LOC: ER 12:14 → EDBEDREQ 13:17 → ENRESERV 15:55 → MICUSO 18:09
PROVIDERS: ADMIT Internal Medicine; ATTEND Internal Medicine
PROC: 5A1955Z Respiratory Ventilation, Greater than 96 Consecutive Hours (ICD-10-PCS; principal; 2020-03-01)
PROC: 0BH17EZ Insertion of Endotracheal Airway into Trachea, Via Natural or Artificial Opening (ICD-10-PCS; 2020-03-01)
PROC: 05HY33Z Insertion of Infusion Device into Upper Vein, Percutaneous Approach (ICD-10-PCS; 2020-03-03)
PROC: B54MZZA Ultrasonography of Right Upper Extremity Veins, Guidance (ICD-10-PCS; 2020-03-03)
PROC: 06H033Z Insertion of Infusion Device into Inferior Vena Cava, Percutaneous Approach (ICD-10-PCS; 2020-03-12)
PROC: B549ZZA Ultrasonography of Inferior Vena Cava, Guidance (ICD-10-PCS; 2020-03-12)
PROC: 30233K1 Transfusion of Nonautologous Frozen Plasma into Peripheral Vein, Percutaneous Approach (ICD-10-PCS; 2020-03-17)
PROC: 30233N1 Transfusion of Nonautologous Red Blood Cells into Peripheral Vein, Percutaneous Approach (ICD-10-PCS; 2020-03-17)
DX: A41.89 Other specified sepsis (principal); U07.1 COVID-19; E43 Unspecified severe protein-calorie malnutrition; J96.01 Acute respiratory failure with hypoxia; R65.21 Severe sepsis with septic shock; J12.89 Other viral pneumonia; N17.0 Acute kidney failure with tubular necrosis; E87.4 Mixed disorder of acid-base balance; D68.9 Coagulation defect, unspecified; E87.0 Hyperosmolality and hypernatremia; G93.40 Encephalopathy, unspecified; I47.1 Supraventricular tachycardia; J93.9 Pneumothorax, unspecified; N39.0 Urinary tract infection, site not specified; K56.699 Other intestinal obstruction unspecified as to partial versus complete obstruction; K92.2 Gastrointestinal hemorrhage, unspecified; Z99.11 Dependence on respirator [ventilator] status; D63.8 Anemia in other chronic diseases classified elsewhere; D72.810 Lymphocytopenia; E83.42 Hypomagnesemia; I16.0 Hypertensive urgency; E86.9 Volume depletion, unspecified; E87.5 Hyperkalemia; Z66 Do not resuscitate; I46.9 Cardiac arrest, cause unspecified; R74.0 Nonspecific elevation of levels of transaminase and lactic acid dehydrogenase [LDH]; I10 Essential (primary) hypertension; J98.2 Interstitial emphysema; Z99.2 Dependence on renal dialysis; Z79.899 Other long term (current) drug therapy; Z78.9 Other specified health status; Z68.35 Body mass index [BMI] 35.0-35.9, adult; Z79.82 Long term (current) use of aspirin; R60.9 Edema, unspecified
CPT/HCPCS: 36415; 36600; 71045; 76937; 80048; 80053; 80069; 80076; 80197; 80202; 80305; 80320; 81003; 82375; 82550; 82553; 82607; 82728; 82805; 83605; 83735; 83880; 84100; 84145; 84443; 84478; 84484; 85025; 85027; 85379; 86140; 86850; 86900; 86920; 86927; 87635; 87804; 93005; 94002; 94003; 99291; C1725; C9113; J0330; J0360; J0692; J0696; J1160; J1644; J1650; J1940; J2250; J2370; J2543; J2704; J2765; J2920; J3010; J3370; J3430; J3475; J3490; J7030; J7050; J7060; J7070; J7120; J7507; J7512; J7517; P9016; P9017; G0480